=== PATIENT | male | born 1970 | race Caucasian/White ===

== ENCOUNTER 2020-07-11 22:11 | Emergency (ER) | payer OTHER ==
[2020-07-12] MEDS ORDERED: Ibuprofen 200 MG TAB ONE (01:17)
== END 2020-07-12 01:51 ==
LOC: CSHERS 22:11
DX: S01.01XA Laceration without foreign body of scalp, initial encounter (principal); S63.501A Unspecified sprain of right wrist, initial encounter; S43.201A Unspecified subluxation of right sternoclavicular joint, initial encounter; I10 Essential (primary) hypertension; Z79.899 Other long term (current) drug therapy; Y04.8XXA Assault by other bodily force, initial encounter
CPT/HCPCS: 12002